=== PATIENT | male | born 1965 | race Caucasian/White ===

== ENCOUNTER → 2016-09-05 | Outpatient (CLI) | payer SELFPAY ==
--- NOTE | 2016-09-05 16:07 | DI ---
LEFT RIB SERIES WITH PA CHEST X-RAY, 09/05/2016 11:55 AM: Clinical History: Left-sided chest pain. PA Chest: Previous Exam: None at this facility. A PA and lateral film are submitted. The patient was charged only for the PA chest and rib series. Th ere is no acute soft tissue or bony abnormality. Heart size is normal. Lungs are clear. Mediastinal s tructures are normal. LEFT Rib Series: There is no rib fracture noted. The visualized portions of the lung are clear. Reading: Normal PA and lateral chest x-ray. Normal left rib series.
== END ==
LOC: MOB RAD 11:55
PROVIDERS: ATTEND Family Medicine
DX: R07.9 Chest pain, unspecified (principal); R06.02 Shortness of breath; I10 Essential (primary) hypertension; F17.220 Nicotine dependence, chewing tobacco, uncomplicated; W18.09XA Striking against other object with subsequent fall, initial encounter
CPT/HCPCS: 71101